=== PATIENT | male | born 1980 | race American Indian/Alaskan Native ===

== ENCOUNTER 2020-09-24 02:37 | Emergency (ER) | payer SELFPAY ==
[2020-09-24 04:24] VITALS: BP 118/76
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
== END 2020-09-24 04:38 | disposition home or self-care (01) ==
LOC: ED 02:37
DX: F17.200 Nicotine dependence, unspecified, uncomplicated (principal); F12.90 Cannabis use, unspecified, uncomplicated; V89.2XXA Person injured in unspecified motor-vehicle accident, traffic, initial encounter; Y93.89 Activity, other specified; Y92.410 Unspecified street and highway as the place of occurrence of the external cause; Y99.8 Other external cause status
CPT/HCPCS: 99283